=== PATIENT | female | born 1970 | race African-American/Black ===

== ENCOUNTER 2017-01-23 08:15 | Day surgery (SDC) | payer OTHER ==
[2017-01-23 08:38] VITALS: BP 129/76; TEMP 98.1
[2017-01-23] MEDS ORDERED: Sodium Chloride 0.9% 20 ML ONE (08:43)
[2017-01-23] MEDS ORDERED: FLU VACC QS2017-18 36 mo. & older 0.5 ML SYRINGE IM ONE (21:00)
== END 2017-01-23 11:27 | disposition home or self-care (01) ==
LOC: ONC/OP 08:15
PROVIDERS: ATTEND Nurse Practitioner Acute Care
DX: D50.9 Iron deficiency anemia, unspecified (principal); N18.3 Chronic kidney disease, stage 3 (moderate); D63.1 Anemia in chronic kidney disease
CPT/HCPCS: 96365; 96366; A4216; J1750; J7050

== ENCOUNTER 2019-09-16 15:06 | Inpatient (IN) | payer OTHER, SELFPAY ==
[2019-09-16 15:52] LABS: #Basophils 0.1 thou/uL (0.0-0.2); #Eosinphils 0.4 thou/uL (0.0-0.7); #Lymphocytes 2.1 thou/uL (1.20-3.40); #Monocytes 0.7 thou/uL (0.11-0.59); #Neutrophils 3.3 thou/uL (1.40-6.50); %Basophils 1.1 % (0.0-1.0); %Eosinophils 5.7 % (0.0-10.0); %Lymphocytes 31.5 % (21.0-51.0); %Monocytes 11.2 % (0.0-10.0); %Neutrophils 50.4 % (42.0-75.0); Hemoglobin 5.9 g/dL (12.0-16.0); Mean Corpuscular HGB CONC 27.5 g/dL (32.0-36.0); Mean Corpuscular Volume 69.1 fL (78.0-98.0); Mean Platelet Volume 9.4 fL (7.4-10.4); Platelet Count 331 thou/uL (130-400); RBC Distribution Width 17.3 % (11.5-14.5); Red Blood Cell (RBC) Count 3.09 mill/uL (4.20-5.40); White Blood Cell (WBC) Count 6.6 thou/uL (4.8-10.8)
[2019-09-16 15:59] LABS: PTT 28.5 sec (22.9-36.1); Prothrombin Time 12.8 sec (12.0-14.7)
[2019-09-16 16:14] LABS: ALT (SGPT) Less than 7 U/L (8-55); AST (SGOT) 8 U/L (5-34); Alkaline Phosphatase 73 U/L (40-110); Anion Gap 11 mmol/L (10-20); BUN (Urea Nitrogen) 19 mg/dL (7.0-18.7); Bilirubin, Total 0.2 mg/dL (0.2-1.2); Calc. Creatinine Clearance 0 mL/min (70-130); Calcium 8.9 mg/dL (7.8-10.44); Carbon Dioxide 24 mmol/L (22-29); Chloride 107 mmol/L (98-107); Estimated GFR-MDRD 29; Globulin 3.5 g/dL (2.4-3.5); Glucose 88 mg/dL (70-105); Potassium 4.8 mmol/L (3.5-5.1); Protein, Total 7.5 g/dL (6.0-8.3); Sodium 137 mmol/L (136-145)
[2019-09-16 16:15] LABS: Anisocytosis SLIGHT = 6-15 cells (100X) (0-5/hpf); Elliptocytes SLIGHT = 2-5 cells (100X) (0-1/hpf); Hypochromia MARKED = >30 cells (100X) (0-5/hpf); MDiff Complete? YES; Microcytosis MODERATE=15-30 cells (100X) (0-5/hpf); Platelet Morphology Comment Appears Adequate; Polychromasia SLIGHT = 2-3 cells (100X) (0-2/hpf); Reflex for Review?? YES; Schistocytes SLIGHT = 2-5 cells (100X) (0-1/hpf); Target Cells SLIGHT = 2-5 cells (100X) (0-1/hpf); Tear Drops SLIGHT = 2-5 cells (100X) (0-1/hpf)
[2019-09-16 17:33] LABS: CK (CPK) 90 U/L (29-168); Lipase 17 U/L (8-78)
--- NOTE | 2019-09-16 17:36 | RAD ---
XR Chest 1 View Portable HISTORY: Chest pain COMPARISON: 10/24/2013 FINDINGS: The heart size is normal. The lungs are well expanded without focal areas of consolidation, pneumothorax or pleural effusions. IMPRESSION: No radiographic evidence of acute cardiopulmonary process.
--- NOTE | 2019-09-16 18:05 | PDOC.FPRHP ---
- History of Present Illness Chief Complaint: Anemia History of Present Illness: Pt is a 49 yo AAF with pmh of HIV, seizures, and asthma who presents for symptomatic anemia. She lived in [place] for a little while and moved back to [place] and has recently moved back to the area. She was seen by Dr. Velez for her HIV on 08/24 and noted to have a Hgb of 5.7. At that time, he sent her to Dr. Alonso who has managed her anemia in the past. There they found her hemoglobin to be low as well and called her to tell her to come into the hospital. She reports she was diagnosed with anemia back in 2012 and had lymph node and bone marrow biopsies that year and they determined her anemia may be 2/ 2 to her CKD. She states she has had some lightheadedness, fatigue, and SOB recently. Of note, she has heavy periods. She states that her periods are relatively heavy and have been since the of her twins 20 years ago. She is a . She used to have her periods monthly, but now they are occurring every 2 weeks. She uses 16 pads a day and has significant clotting. She started menarche at age 11. Records from our clinic indicate a history of leiomyoma. Specialist: Heme: Dr. Alonso ID: Dr. Velez Nephro: Dr. Ewing ED Course: In the ED, she was found to have a Hgb of 5.9 and Cre of 2.16. She was given a 500 cc bolus and 1 Unit of PRBCs. - Allergies/Adverse Reactions Allergies Allergy/AdvReac Type Severity Reaction Status Date / Time No Known Allergies Allergy Verified 09/16/19 20:13 - Home Medications Medication Instructions Recorded Confirmed Type Bictegrav/Emtricit/Tenofov Ala 1 each PO DAILY 09/16/19 09/16/19 History [Biktarvy 50-200-25 mg Tablet] - History PMHx: Seizures, Asthma, HIV PSHx: Lymph node biopsy, bone marrow biopsy, kidney biopsy FHx: Mom-Ovarian Cancer Social: No alcohol, tobacco, or recreational drugs - Review of Systems General: reports: fatigue. denies: fever/chills Eyes: denies: vision changes ENT: denies: nasal congestion, rhinorrhea Respiratory: reports: shortness of breath. denies: cough Cardiovascular: denies: chest pain, edema Gastrointestinal: denies: nausea, vomiting, diarrhea, constipation, abdominal pain Genitourinary: denies: dysuria Skin: denies: rashes, lesions Musculoskeletal: denies: pain, tenderness Neurological: reports: weakness, other (lightheaded) - Vital signs BP: 168/81 HR: 90 RR: 18 Tmax: 99.0 Pox: 99% on RA Wt: 92 kg - Physical Exam Constitutional: NAD, awake, alert and oriented HEENT: normocephalic and atraumatic, PERRLA, EOMI, conjunctiva clear, no scleral icterus, normal nasal mucosa, MMM, oropharynx clear, good dention Neck: supple, no LAD Heart: RRR, normal S1/S2, no murmurs/rubs/gallops, pulses present, no edema Lungs: CTAB, no respiratory distress, good air movement, no rales/rhonchi, no wheezing, no retractions Abdomen: soft, non-tender, no masses/distention Musculoskeletal: normal structure, normal tone Neurological: no focal deficit, CN II-XII intact Skin: no rash/lesions Heme/Lymphatic: no unusual bruising or bleeding Psychiatric: normal mood and affect FMR H&P: Results - Labs Result Diagrams: 09/17/19 06:08 09/17/19 06:08 Lab results: WBC 6.6 thou/uL (4.8-10.8) 09/16/19 15:39 Hgb 5.9 g/dL (12.0-16.0) L* 09/16/19 15:39 Hct 21.3 % (36.0-47.0) L 09/16/19 15:39 MCV 69.1 fL (78.0-98.0) L 09/16/19 15:39 Plt Count 331 thou/uL (130-400) 09/16/19 15:39 Neutrophils % 50.4 % (42.0-75.0) 09/16/19 15:39 Sodium 137 mmol/L (136-145) 09/16/19 15:39 Potassium 4.8 mmol/L (3.5-5.1) 09/16/19 15:39 Chloride 107 mmol/L (98-107) 09/16/19 15:39 Carbon Dioxide 24 mmol/L (22-29) 09/16/19 15:39 BUN 19 mg/dL (7.0-18.7) H 09/16/19 15:39 Creatinine 2.16 mg/dL (0.6-1.1) H 09/16/19 15:39 Glucose 88 mg/dL (70-105) 09/16/19 15:39 Calcium 8.9 mg/dL (7.8-10.44) 09/16/19 15:39 Total Bilirubin 0.2 mg/dL (0.2-1.2) 09/16/19 15:39 AST 8 U/L (5-34) 09/16/19 15:39 ALT Less than 7 U/L (8-55) L 09/16/19 15:39 Alkaline Phosphatase 73 U/L (40-110) 09/16/19 15:39 Creatine Kinase 90 U/L (29-168) 09/16/19 15:39 B-Natriuretic Peptide 19.3 pg/mL (0-100) 09/16/19 15:39 Serum Total Protein 7.5 g/dL (6.0-8.3) 09/16/19 15:39 Albumin 4.0 g/dL (3.5-5.0) 09/16/19 15:39 Lipase 17 U/L (8-78) 09/16/19 15:39 FMR H&P: A/P - Problem List (1) CKD (chronic kidney disease) Current Visit: Yes Status: Acute Code(s): N18.9 - CHRONIC KIDNEY DISEASE, UNSPECIFIED (2) Anemia in chronic kidney disease Current Visit: No Status: Acute Code(s): N18.9 - CHRONIC KIDNEY DISEASE, UNSPECIFIED; D63.1 - ANEMIA IN CHRONIC KIDNEY DISEASE (3) HIV (human immunodeficiency virus infection) Current Visit: Yes Status: Acute Code(s): B20 - HUMAN IMMUNODEFICIENCY VIRUS [HIV] DISEASE (4) Seizures Current Visit: Yes Status: Acute Code(s): R56.9 - UNSPECIFIED CONVULSIONS - Plan Pt is a 49 yo AAF with pmh of HIV, seizures, and asthma who presents for symptomatic anemia. 1. Symptomatic Anemia SOB, Fatigue, Lightheadedness * Hgb: 5.9 * Will trend * 2 Units of RBCs transfused * Iron studies, retic, & ferritin ordered * Will consult Heme, Dr. Alonso, in the am * Will await further workup recommendations * Pelvic exam ordered as has reported hx of leiomyoma in uterus and hx of heavy periods 2. HIV Continue home medication: Biktarvy * Viral load is undetectable per pt and 3. CKD vs YESSICA Cre: 2.16, GFR: 39-34 * Around baseline per review of records * Consider nephrology consult in the am 4. Seizures Last was 8 years ago * Currently on no medications * MD aware Code Status: Full Diet: HHLSo IVF: SL DVT PPx: SCDs GI PPx: Tums Dispo: Admit to medical obs for symptomatic anemia. Transfuse and await heme recommendations. LOS < 48H. FMR H&P: Upper Level - Pertinent history I went evaluated patient. Pt reports been having some chest pain and palpitations the last few days. Reports having heavy periods about every 2 weeks. Pt states has not seen jean claude in 2 years. Has not had iron infusion in 2 years. Pt reports never had leiomyomas found in uterus in past worked up. I have reviewed the above HPI and made edits as needed. See above for full HPI. - Pertinent findings Pt VSS. Cardio: RRR, no murmurs or gallops Resp: CTA-B, no wheezes or crackles. - Plan Date/Time: 09/16/19 4207 I, Arnoldo Kern, PGY3, have evaluated this patient and agree with findings/ plan as outlined by summer internship resident. Pertinent changes/additions are listed above. I have reviewed the above plan and made edits as needed. See above for full details. Addendum - Attending - Attending Attestation Date/Time: 09/17/19 3252 I personally evaluated the patient and discussed the management with the team. I agree with the History, Examination, Assessment and Plan documented above with any addition or exceptions noted below. Likely fibroids causing AUB -> severe anemia. Transfuse and recheck. Will need embedded systems software engineer as an outpatient and a colonoscopy would be reasonable.
[2019-09-16] MEDS ORDERED: Ondansetron ODT 4 MG TAB PO PRN (19:57)
[2019-09-16] MEDS ORDERED: Calcium Carbonate 500 MG ChewTAB PO PRN (19:57)
[2019-09-16] MEDS ORDERED: Ondansetron PF 4 MG/2 ML Vial IVP PRN (19:57)
[2019-09-16] MEDS ORDERED: Acetaminophen 325 MG TAB PO PRN (19:57)
[2019-09-16 20:18] VITALS: BMI 33.7
[2019-09-17 01:38] LABS: Troponin I Less than 0.010 ng/mL (< 0.028)
[2019-09-17 06:19] LABS: Reticulocyte Count 1.5 % (0.5-1.5)
[2019-09-17 06:29] LABS: Hemoglobin 7.8 g/dL (12.0-16.0); Mean Corpuscular Hemoglobin 22.2 pg (27.0-31.0); Mean Platelet Volume 8.9 fL (7.4-10.4); Platelet Count 303 thou/uL (130-400); RBC Distribution Width 19.7 % (11.5-14.5); Red Blood Cell (RBC) Count 3.52 mill/uL (4.20-5.40); White Blood Cell (WBC) Count 7.2 thou/uL (4.8-10.8)
[2019-09-17 06:30] LABS: #Eosinphils 0.4 thou/uL (0.0-0.7); #Lymphocytes 1.7 thou/uL (1.20-3.40); #Monocytes 0.8 thou/uL (0.11-0.59); #Neutrophils 4.3 thou/uL (1.40-6.50); %Basophils 0.6 % (0.0-1.0); %Eosinophils 5.4 % (0.0-10.0); %Lymphocytes 22.9 % (21.0-51.0); %Monocytes 11.7 % (0.0-10.0); %Neutrophils 59.4 % (42.0-75.0)
[2019-09-17 06:45] LABS: Anisocytosis SLIGHT = 6-15 cells (100X) (0-5/hpf); Hypochromia SLIGHT = 6-15 cells (100X) (0-5/hpf); MDiff Complete? YES; Microcytosis SLIGHT = 6-15 cells (100X) (0-5/hpf); Tear Drops SLIGHT = 2-5 cells (100X) (0-1/hpf)
--- NOTE | 2019-09-17 07:14 | ULT ---
TRANSABDOMINAL AND TRANSVAGINAL PELVIC ULTRASOUND WITH CEVALLOS SCALE AND COLOR FLOW AND SPECTRAL DOPPLER IMAGING: HISTORY: A 49-year-old female with anemia and uterine fibroid. Heavy vaginal bleeding for years. FINDINGS: The uterus measures 11.7 x 7.6 x 5 cm with multiple masses consistent with fibroids. The largest is on the left side measuring 5 x 2.8 x 2.6 cm. The fibroid in the midline measures 2.9 x 2.8 x 1.8 cm. Nabothian cysts are present. The endometrium measures 4 mm in thickness without evidence of endomet rial fluid. There is a 3.5 x 2.6 x 3.5 cm right ovarian cyst. A 1.7 cm left ovarian cyst is seen. There is flow demonstrated to both ovaries. No free fluid is seen in the cul-de-sac. IMPRESSION: 1. Uterine fibroids. 2. A 3.5 cm right ovarian cyst. POS: [facility]
[2019-09-17 07:15] LABS: ALT (SGPT) Less than 7 U/L (8-55); AST (SGOT) 10 U/L (5-34); Albumin 3.5 g/dL (3.5-5.0); Alkaline Phosphatase 68 U/L (40-110); Anion Gap 10 mmol/L (10-20); BUN (Urea Nitrogen) 18 mg/dL (7.0-18.7); Bilirubin, Total 0.5 mg/dL (0.2-1.2); Calc. Creatinine Clearance 58 mL/min (70-130); Calcium 8.6 mg/dL (7.8-10.44); Carbon Dioxide 23 mmol/L (22-29); Chloride 107 mmol/L (98-107); Estimated GFR-MDRD 38; Globulin 3.4 g/dL (2.4-3.5); Glucose 89 mg/dL (70-105); Iron 140 ug/dL (50-170); Iron Binding Capacity, Total 394 mcg/dL (265-497); Potassium 4.3 mmol/L (3.5-5.1); Protein, Total 6.9 g/dL (6.0-8.3); Sodium 136 mmol/L (136-145)
--- NOTE | 2019-09-17 07:18 | PDOC.FM ---
- Subjective Subjective: Pt is doing well today. She endorsed heavy bleeds once a month requiring 17 pads a day for 1 week. She has been told before she needs a hysterectomy. She now is highly considering a hysterectomy. She has seen Dr. Alonso in the past for iron transfusions. Pt rolled ankle a few days ago. She has discomfort with mild edema, FROM. - Objective Vital Signs & Weight: Vital Signs (12 hours) Temp Pulse Pulse Resp BP BP Pulse Ox 09/17/19 03:43 98.4 F 72 18 131/80 99 09/17/19 02:20 98.4 F 71 18 125/83 09/17/19 00:45 98.7 F 64 18 126/86 09/16/19 23:37 98.1 F 77 18 120/78 100 09/16/19 21:45 98.5 F 18 139/88 09/16/19 21:30 98.4 F 71 18 125/83 09/16/19 20:16 98.2 F 73 18 138/83 98 Weight Weight 92.17 kg I&O: 09/16/19 09/17/19 09/18/19 06:59 06:59 06:59 Intake Total 1050 Balance 1050 Result Diagrams: 09/17/19 06:08 09/17/19 06:08 Phys Exam - Physical Examination Constitutional: NAD HEENT: PERRLA, moist MMs Neck: no JVD, full ROM Cardiovascular: RRR, no significant murmur Gastrointestinal: soft, no distention, positive bowel sounds Musculoskeletal: no edema, pulses present R ankle tender to touch medially, FROM Psychiatric: normal affect, A&O x 3 Dx/Plan (1) CKD (chronic kidney disease) Code(s): N18.9 - CHRONIC KIDNEY DISEASE, UNSPECIFIED Status: Acute (2) HIV (human immunodeficiency virus infection) Code(s): B20 - HUMAN IMMUNODEFICIENCY VIRUS [HIV] DISEASE Status: Acute (3) Anemia in chronic kidney disease Code(s): N18.9 - CHRONIC KIDNEY DISEASE, UNSPECIFIED; D63.1 - ANEMIA IN CHRONIC KIDNEY DISEASE Status: Acute (4) Iron deficiency anemia Code(s): D50.9 - IRON DEFICIENCY ANEMIA, UNSPECIFIED Status: Acute (5) Fibroids Code(s): D21.9 - BENIGN NEOPLASM OF CONNECTIVE AND OTHER SOFT TISSUE, UNSP Status: Acute (6) Seizures Code(s): R56.9 - UNSPECIFIED CONVULSIONS Status: Acute - Plan Plan: Pt is a 49 yo AAF with pmh of HIV, seizures, and asthma who presents for symptomatic anemia. 1. Symptomatic Anemia SOB, Fatigue, Lightheadedness * Hgb: 5.9 -> 7.8; iron transfusion today then discharge * Will trend * 2 Units of RBCs transfused * Will consult Heme, Dr. 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 HIV Continue home medication: Biktarvy * Viral load is undetectable per pt and 3. CKD vs YESSICA Cre: 2.16, GFR: 39-34 * Around baseline per review of records * Pt follows Dr. Ewing. Needs follow up in outpt 4. Seizures Last was 8 years ago * Currently on no medications * MD aware Code Status: Full Diet: HHLSo IVF: SL DVT PPx: SCDs GI PPx: Tums Dispo: Admit to medical obs for symptomatic anemia. Transfuse and await heme recommendations. LOS < 48H. Addendum - Attending - Attending Attestation Date/Time: 09/17/19 1218 I personally evaluated the patient and discussed the management with Dr. Sahu. I agree with the History, Examination, Assessment and Plan documented above with any addition or exceptions noted below. Patient here with symptomatic chronic blood loss iron deficiency anemia from uterine fibroids. She is not currently bleeding. H/H improved, symptoms improved. Iron infusion given. 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
[2019-09-17] MEDS ORDERED: (Bictegrav/Emtricit/Tenofov Ala [Biktarvy 50-200-25 Mg Tablet] PO SCH (09:00)
[2019-09-17] MEDS ORDERED: Prevnar 13-Val Conj/PF 0.5 ML SYRINGE IM ONE (09:00)
[2019-09-17] MEDS ORDERED: Enoxaparin Sodium 30 MG/0.3 ML SYRINGE SC SCH (09:00)
[2019-09-17] MEDS ORDERED: Iron, Sodium Ferric Gluconate 250 MG in Sodium Chloride 0.9% 100 ML IVPB SCH (10:00)
[2019-09-17] MEDS ORDERED: Iron Sucrose Complex 200 MG in Sodium Chloride 0.9% 250 ML 250 ML IVPB SCH (10:00)
[2019-09-17 17:11] VITALS: BP 153/88; TEMP 98
== END 2019-09-17 17:33 | disposition home or self-care (01) | DRG 760 ==
LOC: ERS 15:06 → T4-A 19:00 → ERS 19:45
PROVIDERS: ADMIT Emergency Medicine; ATTEND Emergency Medicine
PROC: 30233N1 Transfusion of Nonautologous Red Blood Cells into Peripheral Vein, Percutaneous Approach (ICD-10-PCS; principal; 2019-09-16)
DX: D25.9 Leiomyoma of uterus, unspecified (principal); B20 Human immunodeficiency virus [HIV] disease; N17.9 Acute kidney failure, unspecified; J45.909 Unspecified asthma, uncomplicated; D63.1 Anemia in chronic kidney disease; D50.9 Iron deficiency anemia, unspecified; N18.9 Chronic kidney disease, unspecified; R56.9 Unspecified convulsions
CPT/HCPCS: 36415; 36430; 71045; 76856; 80053; 82274; 82550; 82728; 83540; 83550; 83690; 83880; 84484; 85025; 85046; 85060; 85610; 85730; 86850; 86900; 86901; 93005; J2916; J3490; P9016

== ENCOUNTER 2020-06-06 20:35 | Emergency (ER) | payer SELFPAY ==
[2020-06-06] MEDS ORDERED: HYDROcodone/Acetaminophen 10/325 mg Tablet ONE (22:32)
--- NOTE | 2020-06-06 22:39 | RAD ---
Exam:Left foot 3 views HISTORY: Pain. Possible gout flareup COMPARISON: 07/20/2014 FINDINGS: Lisfranc alignment is maintained. Joint spaces are preserved. No fracture. No erosive or de structive changes of the articular surfaces. There is soft tissue swelling. IMPRESSION: Soft tissue swelling. Correlate for cellulitis. No significant erosive or destructive garrison nges or calcifications in the first MTP joint to suggest arthropathy.
== END 2020-06-06 23:11 | disposition home or self-care (01) ==
LOC: ERS 20:35
DX: L03.116 Cellulitis of left lower limb (principal); M10.9 Gout, unspecified; D64.9 Anemia, unspecified; I10 Essential (primary) hypertension; J45.909 Unspecified asthma, uncomplicated; Z21 Asymptomatic human immunodeficiency virus [HIV] infection status; Z79.899 Other long term (current) drug therapy